=== PATIENT | male | born 1960 | race Hispanic/Latino ===

== ENCOUNTER 2022-06-04 15:08 | Emergency (ER) | payer OTHER ==
[~2022-06-04] VITALS: Ht 160 cm; Wt 73.9 kg
[2022-06-04 15:17] VITALS: BP 147/83
== END 2022-06-04 17:04 | disposition home or self-care (01) ==
LOC: EDH 15:08
DX: R13.10 Dysphagia, unspecified (principal); I10 Essential (primary) hypertension; E11.9 Type 2 diabetes mellitus without complications; E78.00 Pure hypercholesterolemia, unspecified

== ENCOUNTER 2025-01-20 17:19 | Emergency (ER) | payer OTHER ==
[~2025-01-20] VITALS: Ht 157.5 cm; Wt 78.5 kg
[2025-01-20 17:21] VITALS: TEMP 98.2
--- NOTE | 2025-01-20 17:55 | NUR ---
PATIENT IN ER LOBBY, PENDING GFR, IV SITE & CONSENT FOR CT EXAM.
[2025-01-20 17:57] LABS: IMMATURE GRANULOCYTE ABSOLUTE 0.51 K/uL (0-1); NUCLEATED RED BLOOD CELLS 0.0 % (0.0-0.19); PLATELET COUNT (AUTO) 240 K/uL (130-400); RED BLOOD CELL COUNT(AUTO) 4.66 MIL/uL (4.50-6.20); RED CELL DISTRIBUTION WIDTH 13.6 % (11.0-15.5); WHITE BLOOD COUNT (AUTO) 23.0 K/uL (4.8-10.8)
[2025-01-20 18:06] LABS: CREATININE 0.7 mg/dL (0.5-1.3); GLOMERULAR FILTR. RATE CALC 102.0 mL/min (>90); GLUCOSE,RANDOM 152.0 mg/dL (70-105); SODIUM SERUM 138.0 mmol/L (136-145); UREA NITROGEN, BLOOD 18.0 mg/dL (7-18)
[2025-01-20 18:22] LABS: BAND NEUTROPHILS % (MANUAL) 17 % (0-2); BASOPHILS % (MANUAL) 2 % (0-2); MAN.DIFF COMMENT-IMPRESSION MANUAL DIFFERENTIAL; MONOCYTES % (MANUAL) 6 % (2-9); PLATELET MORPHOLOGY COMMENT ADEQUATE; SEGMENTED NEUTROPHILS % 75 % (40-70); WBC MORPHOLOGY CONSISTENT W/DIFF
[2025-01-20] MEDS ORDERED: IOHEXOL-350 50ML VIAL IV ONE (20:06)
[2025-01-20] MEDS: 0.9%NACL 1000ML 1,000 ML IV ONE (21:04)
[2025-01-20] MEDS: ZOSYN 3.375GM +NS 50ML IV ONE (21:04)
--- NOTE | 2025-01-20 21:44 | HMCIMG ---
EXAM: CT NECK SOFT TISSUES WITH INTRAVENOUS CONTRAST Technique: Multidetector contrast-enhanced computed tomography of the neck was performed from the skull base through the thoracic inlet with axial acquisitions and coronal and sagittal reformations. Intravenous iodinated contrast was administered. Dose reduction was applied per [id number]-reasonably-achievable principles, including automated exposure control and patient size???based tube current and voltage modulation with iterative reconstruction. Clinical Information: Rule out left peritonsillar abscess. Comparison: None. Findings: Pharyngeal/tonsillar structures: There is marked asymmetric enlargement of the left palatine tonsil extending from the skull base inferiorly to the level of the aryepiglottic fold. The enlarged tonsil is heterogeneously low attenuation with scattered internal air foci. No discrete rim-enhancing fluid collection is identified. Aggregate dimensions are approximately 3.4 ??? 3.3 ??? 4.6 cm. Resultant mild narrowing of the adjacent oropharyngeal airway is present. Surrounding parapharyngeal fat is mildly striated without a discrete drainable collection. Larynx/epiglottis: Supraglottic airway is patent; no focal mass. Salivary glands: Parotid and submandibular glands are normal in size and enhancement without sialolithiasis. Thyroid: Normal in size and enhancement without focal nodule. Lymph nodes: Multiple bilateral cervical lymph nodes are present across levels II???IV, subcentimeter in short axis, without necrosis???likely reactive. Vessels: Major cervical vessels enhance normally; no occlusion or dissection on this technique. Bones/soft tissues: Loss of normal cervical lordosis with mild multilevel cervical spondylosis. No osseous destruction. No soft-tissue gas beyond the tonsillar region. Visualized lung apices: Clear. Impression: * Marked enlargement of the left palatine tonsil with heterogeneous attenuation and internal air pockets, causing mild oropharyngeal airway narrowing. Lack of peripheral rim enhancement argues against a mature drainable peritonsillar abscess and favors acute tonsillitis/phlegmon, though early or partially treated abscess cannot be entirely excluded. * Multistation subcentimeter bilateral cervical lymph nodes, likely reactive. * Loss of cervical lordosis with mild cervical spondylosis. /Sutton
--- NOTE | 2025-01-20 23:35 | NUR ---
TRANSFER CALL PLACED TO [facility] [employer] TO INITIATE TRANSFER FOR ENT SERVICES
--- NOTE | 2025-01-20 23:44 | ERN ---
General Chief Complaint: Sore Throat Stated Complaint: SORE THROAT Time Seen by MD: 17:23 Time Seen by Midlevel: 17:23 Source: patient History of Present Illness Initial Comments Patient is a 64-year-old male presenting to the emergency department for evaluation of a sore throat and difficulty swallowing that started three days ago and progressively worsened Allergies: Coded Allergies: No Known Drug Allergies (Unverified Allergy, Unknown, 01/20/25) Past Medical History Past Medical History: Diabetes-Type II, Glaucoma, High Cholesterol, Heart D isease, Hypertension Past Surgical History: Other Surgical History Other: ABD HERNIA Social History Social History: Negative, Lives alone ROS Dictation CONSTITUTIONAL: Negative except for HPI HEAD/FACE: Negative except for HPI EENT: Negative except for HPI RESPIRATORY: Negative except for HPI GASTROINTESTINAL/ABDOMINAL: Negative except for HPI GENITOURINARY: Negative except for HPI MUSCULOSKELETAL: Negative except for HPI INTEGUMENTARY: Negative except for HPI NEUROLOGICAL/PSYCH: Negative except for HPI HEMATOLOGIC/LYMPHATIC: Negative except for HPI All Systems Negative, Except as noted above. 13 point review of systems assessed and all negative except for above. Physical Exam Physical Exam Dictation Vital Signs reviewed General Appearance: Alert, oriented x 3, no acute distress, well developed, nourished. Head and Face: non-traumatic. Eyes: PERRL, pink conjunctivas, eyelid no trauma, anterior chamber with arcus senilis. Ears: Pinnas intact and no signs of trauma or erythema ear canals clear and no discharge TM no erythema Nose: No discharge, no bleeding. Oropharynx: Mouth normal, tongue pink, pharynx clear,no erythema, tonsils no exudates, left peritonsilar abscess, mucous membrane moist Neck: Supple, non-tender, no thyromegaly, no masses, no JVD, no bruits Breast:Deferred Chest:No tenderness, no crepitus, no paradoxical movement, no retractions Lungs:Clear, well-ventilated, symmetric, no rales, no wheezing, no rhonchi, no stridor, good breath sounds bilaterally Heart: Regular rate, regular rhythm, no murmur, no gallops Vascular: no peripheral edema, Abdomen: Soft, positive bowel sounds, nondistended, no guarding, nontender, no rebound, no masses no hepatomegaly, no splenomegaly, no Elizabeth's sign, no hernias. Rectal: Deferred Genital: Deferred Neurological: Normal speech, motor function intact, sensory function intact Musculoskeletal: Neck nontender, full range of motion, back nontender, full range of motion, Extremities: nontender, full range of motion Skin: Color pink, dry, no turgor, no rash, no lacerations, no abrasions, no contusions. Lymphatic: Deferred Results Laboratory and Microbiology Lab and Micro Result Laboratory Tests Test 01/20/25 17:52 White Blood Count 23.0 K/uL (4.8-10.8) H Red Blood Count 4.66 MIL/uL (4.50-6.20) Hemoglobin 14.6 g/dL (14.0-18.0) Hematocrit 43.3 % (42-54) Mean Corpuscular Volume 92.9 fL (79-99) Mean Corpuscular Hemoglobin 31.3 pg (27.0-33.0) Mean Corpuscular Hemoglobin Concent 33.7 g/dL (32.0-36.0) Red Cell Distribution Width 13.6 % (11.0-15.5) Platelet Count 240 K/uL (130-400) Mean Platelet Volume 10.0 fL (7.5-10.5) Immature Granulocyte % (Auto) 2.2 % (0-1) H Neutrophils (%) (Auto) 86.1 % (40.0-77.0) H Lymphocytes (%) (Auto) 2.5 % (21.0-51.0) L Monocytes (%) (Auto) 9.0 % (3.0-13.0) Eosinophils (%) (Auto) 0.0 % (0.0-8.0) Basophils (%) (Auto) 0.2 % (0.0-5.0) Neutrophils # (Auto) 19.8 K/uL (1.8-7.7) H Lymphocytes # (Auto) 0.6 K/uL (1.0-4.8) L Monocytes # (Auto) 2.1 K/uL (0.1-1.0) H Eosinophils # (Auto) 0.00 K/uL (0.00-0.70) Basophils # (Auto) 0.05 K/uL (0.00-0.20) Absolute Immature Granulocyte (auto 0.51 K/uL (0-1) Segmented Neutrophils % 75 % (40-70) H Band Neutrophils % 17 % (0-2) H Monocytes % (Manual) 6 % (2-9) Basophils % (Manual) 2 % (0-2) Nucleated Red Blood Cells 0.0 % (0.0-0.19) Differential Comment MANUAL DIFFERENTIAL White Cell Morphology Comment CONSISTENT W/DIFF Platelet Morphology Comment ADEQUATE Red Blood Cell Morphology ANISO 1+ Sodium Level 138 mmol/L (136-145) Potassium Level 3.7 mmol/L (3.5-5.1) Chloride Level 100 mmol/L (101-111) L Carbon Dioxide Level 17 mmol/L (21-32) L Blood Urea Nitrogen 18 mg/dL (7-18) Creatinine 0.7 mg/dL (0.5-1.3) Glomerular Filtration Rate Calc 102 mL/min (>90) Random Glucose 152 mg/dL (70-105) H Lactic Acid Level 1.6 mmol/L (0.8-2.5) Total Calcium 9.0 mg/dL (8.5-10.1) Labs Reviewed?: Yes MDM MDM: Differential diagnosis: abscess, strep Rationale: Tests considered and ordered secondary to shared decision making include: Previous outside records reviewed: Old ER visits. Risk of complication and/or morbidity or mortality of patient management: None Medications-Per medication reconciliation Need for hospitalization: Patient does meet criteria for hospitalization. Need for emergency major/minor surgery: No There are no social concerns with this patient. Prescription drug management Prescriptions will include symptomatic care Patient's prior external medical records from other ER visits were reviewed by me as indicated. Prior testing and results from previous visits were reviewed. Prior tests were taken into account with medical decision making and resource utilization, independent historian/historians were used to obtain complete medical history. I independently interpreted the test that were performed, results were reviewed by me and considered findings on radiology if ordered. Medical management and examination interpretation discussions were had by me with other qualified healthcare professionals as indicated for the patient's care. ED Course Orders Procedure Category Date Status Time Cbc With Differential LAB 01/20/25 Complete 17:28 Basic Metabolic Panel LAB 01/20/25 Complete 17:28 Lactic Acid LAB 01/20/25 Complete 17:28 Ct Neck Soft Tiss CT 01/20/25 Resulted W/Contrast 17:28 Dexamethasone 4mg/Ml PHA 01/20/25 Complete 1ml Vial (Dexametha 17:30 Morphine 2mg Syg PHA 01/20/25 Complete (Morphine 2mg Syg) 17:30 Ondansetron 4mg Inj PHA 01/20/25 Complete (Zofran 4mg Inj) 17:30 Manual Differential LAB 01/20/25 Complete 17:52 Zosyn 3.375gm+Ns 50ml PHA 01/20/25 Complete (Zosyn 3.375gm+Ns 19:00 0.9%Nacl 1000ml (Ns PHA 01/20/25 Complete 1000ml) 19:00 Arterial Blood Gas RT 01/20/25 Transmitted 19:37 Iohexol (Omnipaque) PHA 01/20/25 Complete 20:06 Current Medications Medications (Trade) Dose Ordered Sig/[place] Route PRN Reason Start Time Stop Time Status Last Admin Dose Admin Dexamethasone Sodium Phosphate (dexaMETHasone 4MG/ML 1ML VIAL) 6 mg ONCE ONCE IVP 01/20/25 17:30 01/20/25 17:34 DC 01/20/25 21:04 Iohexol (Omnipaque) 50 ml STK-MED ONCE IV 01/20/25 20:06 01/20/25 20:07 DC Morphine Sulfate (morPHINE 2MG SYG) 2 mg ONCE ONCE IVP 01/20/25 17:30 01/20/25 17:34 DC 01/20/25 21:03 Ondansetron HCl (zoFRAN 4MG INJ) 4 mg ONCE ONCE IVP 01/20/25 17:30 01/20/25 17:34 DC 01/20/25 21:04 Piperacillin Sod/ Tazobactam Sod (Zosyn 3.375gm+NS 50ml) 3.375 gm ONCE ONCE IV 01/20/25 19:00 01/20/25 19:01 DC 01/20/25 21:04 Sodium Chloride 1,000 ml @ 0 mls/hr ONCE ONCE IV 01/20/25 19:00 01/20/25 19:01 DC 01/20/25 21:04 Vital Signs Date Time Temp Pulse Resp B/P (MAP) Pulse Ox O2 Delivery O2 Flow Rate FiO2 01/20/25 22:33 107 19 112/53 98 Room Air* 0 21 01/20/25 21:36 100 19 120/64 97 Room Air* 0 21 01/20/25 17:21 98.2 116 18 115/61 96 0 DX & DISP Disposition: Transfer Departure Impression: Primary Impression: Peritonsillar abscess Condition: Stable Referrals: CAROLINE MCKEON MD (PCP) I have reviewed the case, and I agree with, Diagnosis and Plan I performed the substantive portion of the visit. I have reviewed and personally made and approve the management plan that is documented in the note by myself or the VARSHA. I acknowledge for responsibility for the patient's management plan. CHRISTINA WILLIS PAC Jan 20, 2025 23:44
[2025-01-21 00:09] VITALS: BP 109/61; PULSE 103; RESP 19; O2SAT 97
--- NOTE | 2025-01-21 00:32 | NUR ---
REPORT CALLED TO [facility] ER, SPOKE WITH ENEDINA RIGGS. AWAITING EMS TRANSPORT
== END 2025-01-21 00:32 | disposition short-term general hospital (02) ==
LOC: EDH 17:19
DX: J36 Peritonsillar abscess (principal); I11.9 Hypertensive heart disease without heart failure; E11.9 Type 2 diabetes mellitus without complications; E78.00 Pure hypercholesterolemia, unspecified
CPT/HCPCS: 99285; 96365; 70491; 96375 ×2; 80048; 85025; 83605; 36415; 36600; J1100; J2270; J7030; J2405; J2543; Q9967; J1885